=== PATIENT | female | born 1945 ===

== ENCOUNTER 2021-07-10 08:45 | Inpatient (IN) | payer OTHER ==
[~2021-07-10] VITALS: Ht 160 cm; Wt 90.7 kg
[2021-07-10] MEDS ORDERED: LOZOL PO (11:02)
[2021-07-10] MEDS ORDERED: CHILDREN'S ASPI81 MG PO (11:02)
[2021-07-10] MEDS ORDERED: PROTONIX40 MG PO (11:03)
[2021-07-10] MEDS ORDERED: PAXIL40 MG PO (11:03)
[2021-07-10] MEDS ORDERED: HORIZANT300 MG PO (11:04)
[2021-07-10] MEDS ORDERED: PRAVASTATIN SOD40 MG PO (11:04)
[2021-07-10] MEDS ORDERED: ALTACE10 MG PO (11:04)
[2021-07-10] MEDS ORDERED: DILTIAZEM 24HR240 MG PO (11:05)
[2021-07-10] MEDS ORDERED: RAYOS5 MG PO (11:05)
[2021-07-10] MEDS ORDERED: NORFLEX PO (11:06)
[2021-07-22] MEDS ORDERED: NORFLEX100MG (14:15)
[2021-07-22] MEDS ORDERED: INDAPAMIDE2.5 MG (14:16)
[2021-07-22] MEDS ORDERED: GABAPENTIN300 M2 (14:17)
== END 2021-08-05 11:59 | disposition home or self-care (01) | DRG 329 ==
LOC: O/R 07-13 05:35 → SURH 07-13 05:35
PROVIDERS: ADMIT Colon & Rectal Surgery; ATTEND Colon & Rectal Surgery
PROC: 0DTP0ZZ Resection of Rectum, Open Approach (ICD-10-PCS; 2021-07-13)
PROC: 0WQF0ZZ Repair Abdominal Wall, Open Approach (ICD-10-PCS; 2021-07-13)
PROC: 5A1945Z Respiratory Ventilation, 24-96 Consecutive Hours (ICD-10-PCS; 2021-07-13)
PROC: 0BH17EZ Insertion of Endotracheal Airway into Trachea, Via Natural or Artificial Opening (ICD-10-PCS; 2021-07-13)
PROC: 3E0F7SF Introduction of Other Gas into Respiratory Tract, Via Natural or Artificial Opening (ICD-10-PCS; 2021-07-13)
PROC: 0DTN0ZZ Resection of Sigmoid Colon, Open Approach (ICD-10-PCS; principal; 2021-07-13 07:00)
PROC: 4A033R1 Measurement of Arterial Saturation, Peripheral, Percutaneous Approach (ICD-10-PCS; 2021-07-14)
PROC: 4A12X4Z Monitoring of Cardiac Electrical Activity, External Approach (ICD-10-PCS; 2021-07-14)
PROC: BW25ZZZ Computerized Tomography (CT Scan) of Chest, Abdomen and Pelvis (ICD-10-PCS; 2021-07-14)
PROC: BW21ZZZ Computerized Tomography (CT Scan) of Abdomen and Pelvis (ICD-10-PCS; 2021-07-21)
PROC: 3E0F7GC Introduction of Other Therapeutic Substance into Respiratory Tract, Via Natural or Artificial Opening (ICD-10-PCS; 2021-07-21)
PROC: 05HY33Z Insertion of Infusion Device into Upper Vein, Percutaneous Approach (ICD-10-PCS; 2021-07-21)
PROC: BT43ZZZ Ultrasonography of Bilateral Kidneys (ICD-10-PCS; 2021-07-21)
PROC: 8E0ZXY6 Isolation (ICD-10-PCS; 2021-07-21)
PROC: 30243N1 Transfusion of Nonautologous Red Blood Cells into Central Vein, Percutaneous Approach (ICD-10-PCS; 2021-07-23)
PROC: BW21ZZZ Computerized Tomography (CT Scan) of Abdomen and Pelvis (ICD-10-PCS; 2021-07-24)
PROC: 0W9F00Z Drainage of Abdominal Wall with Drainage Device, Open Approach (ICD-10-PCS; 2021-07-29)
PROC: BW2110Z Computerized Tomography (CT Scan) of Abdomen and Pelvis using Low Osmolar Contrast, Unenhanced and Enhanced (ICD-10-PCS; 2021-07-29)
DX: K57.32 Diverticulitis of large intestine without perforation or abscess without bleeding (principal); J95.821 Acute postprocedural respiratory failure; K65.1 Peritoneal abscess; A41.9 Sepsis, unspecified organism; R65.20 Severe sepsis without septic shock; T81.49XA Infection following a procedure, other surgical site, initial encounter; D62 Acute posthemorrhagic anemia; N17.8 Other acute kidney failure; K91.89 Other postprocedural complications and disorders of digestive system; L03.311 Cellulitis of abdominal wall; K55.1 Chronic vascular disorders of intestine; Z16.12 Extended spectrum beta lactamase (ESBL) resistance; K43.9 Ventral hernia without obstruction or gangrene; Y83.8 Other surgical procedures as the cause of abnormal reaction of the patient, or of later complication, without mention of misadventure at the time of the procedure; Y81.8 Miscellaneous general- and plastic-surgery devices associated with adverse incidents, not elsewhere classified; Y92.234 Operating room of hospital as the place of occurrence of the external cause; B96.29 Other Escherichia coli [E. coli] as the cause of diseases classified elsewhere; B95.2 Enterococcus as the cause of diseases classified elsewhere; B96.7 Clostridium perfringens [C. perfringens] as the cause of diseases classified elsewhere; J98.01 Acute bronchospasm; E78.5 Hyperlipidemia, unspecified; I49.8 Other specified cardiac arrhythmias; I10 Essential (primary) hypertension; M06.8A Other specified rheumatoid arthritis, other specified site; E66.8 Other obesity; Z79.52 Long term (current) use of systemic steroids; D72.828 Other elevated white blood cell count; E83.39 Other disorders of phosphorus metabolism; L29.8 Other pruritus

== ENCOUNTER 2021-08-18 13:48 | Emergency (ER) | payer OTHER ==
[~2021-08-18] VITALS: Ht 162.6 cm; Wt 83.9 kg
[~2021-08-18 13:48] MED LIST: ALTACE10 MG PO; CHILDREN'S ASPI81 MG PO; DILTIAZEM 24HR240 MG PO; GABAPENTIN300 M2; HORIZANT300 MG PO; INDAPAMIDE2.5 MG; LOZOL PO; NORFLEX PO; NORFLEX100MG; PAXIL40 MG PO; PRAVASTATIN SOD40 MG PO; PROTONIX40 MG PO; RAYOS5 MG PO
== END 2021-08-18 17:05 | disposition home or self-care (01) ==
LOC: ER 13:48
DX: T85.9XXA Unspecified complication of internal prosthetic device, implant and graft, initial encounter (principal)